=== PATIENT | female | born 2005 | race Two or more races ===

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

== ENCOUNTER 2025-01-29 10:51 | Emergency (ER) | payer MEDICAID, SELFPAY ==
[2025-01-29 10:52] VITALS: BMI 15.0
[2025-01-29 10:58] VITALS: BP 106/74; PULSE 98; RESP 18; TEMP 36.7; O2SAT 97
--- NOTE | 2025-01-29 11:17 | XR_ITS ---
Examination: Pelvic ultrasound, transabdominal, complete Technique: Transabdominal ultrasound of the pelvis performed using grayscale imaging Date and time of exam: January 29, 2025, 11:52 AM Indications: Pelvic pain beginning 2 hours ago Findings: Uterus 8.5 cm endometrial stripe 1.1 cm No uterine mass or intrauterine gestation Right ovary 3.9 cm arterial flow. Left ovary 3.6 cm arterial flow Impression: Negative study
--- NOTE | 2025-01-29 11:19 | PD.EDABDPN ---
ED Abdominal Pain RME/HPI General Chief Complaint: Abdominal Pain Stated complaint: SEVERE LOWER ABD PAIN, N/V, FAINTED, HEARING LOSS Time seen by provider: 01/29/25 10:59 Arrival date/time: 01/29/25 10:51 Source: patient Limitations: no limitations RME / HPI RME / HPI narrative: Patient is a healthy 19-year-old female with no past medical or surgical history. She states she developed diffuse pelvic pain this morning and had episodes of emesis. She denies any dysuria or flank pain. No fevers or chills. No vaginal discharge or itching. She states she is sexually active but does not use any for control. Last menstrual cycle was sometime 1 month ago. She has no other acute complaints or concerns. Related Data Allergies Allergy/AdvReac Type Severity Reaction Status Date / Time acetaminophen (From Allergy Severe Rash Verified 01/29/25 10:55 Tylenol-Codeine) codeine (From Allergy Severe Rash Verified 01/29/25 10:55 Tylenol-Codeine) Review of Systems Review of Systems Systems Reviewed: All systems reviewed, normal except as documented ED Exam General Limitations: Present no limitations General appearance: Present alert and in no apparent distress Head Head exam: Present atraumatic Eye Eye exam: Present normal appearance, PERRL and EOMI ENT ENT exam: Present normal exam, normal oropharynx and mucous membranes moist Neck Neck exam: Present normal inspection, full ROM and trachea midline Chest Chest inspection: Present normal inspection and symmetric chest wall rise Respiratory Respiratory exam: Present normal lung sounds bilaterally Cardiovascular Cardiovascular exam: Present regular rate, normal rhythm and normal heart sounds Abdominal Exam Abdominal exam: Present soft and tenderness; Absent distention, guarding or rebound Extremities Exam Extremities exam: Present normal inspection and full ROM Back Exam Back exam: Present normal inspection and full ROM Neurological Exam Neurological exam: Present alert and oriented X3 Psychiatric Psychiatric exam: Present normal affect and normal mood Skin Skin exam: Present warm, dry, intact and normal color Course Quality Measures none Orders Category Date Time Status Insert IV NOW Care 01/29/25 12:47 Active pelvic complete Stat Exams 01/29/25 11:17 Completed CBC Stat Lab 01/29/25 11:28 Completed CMP [Comprehensive Metabolic Panel] Stat Lab 01/29/25 11:28 Completed HCG,Qualitative Serum Stat Lab 01/29/25 11:28 Completed Lactic Acid [Lactate (Lactic Acid)] Stat Lab 01/29/25 11:28 Results Lipase Stat Lab 01/29/25 11:28 Completed UA, C/S IF [Urinalysis, C/S if Indicated] Stat Lab 01/29/25 11:42 Completed HYDROcodone*/APAP 5/325 [[place] 5/325] Med 01/29/25 11:16 Discontinued 1 tab PO X1 ONE Sodium Chloride 0.9% 1000 ml [Ns] 1,000 ml Med 01/29/25 12:12 Discontinued IV 999 mls/hr Vital Signs Vital signs: Vital Signs Temperature 98.0 F 01/29/25 10:58 Pulse Rate 98 01/29/25 10:58 Respiratory Rate 18 01/29/25 10:58 Blood Pressure 106/74 01/29/25 10:58 Pulse Oximetry (%) 97 01/29/25 10:58 Oxygen Delivery Method Room Air 01/29/25 10:58 Abdominal Pain MDM MDM Narrative MDM Narrative:: Patient is a healthy 19-year-old female with no past medical or surgical history. She states she developed diffuse pelvic pain this morning and had episodes of emesis. She denies any dysuria or flank pain. No fevers or chills. No vaginal discharge or itching. She states she is sexually active but does not use any for control. Last menstrual cycle was sometime 1 month ago. She has no other acute complaints or concerns. On exam, patient is nontoxic-appearing in no visible signs distress. Vital signs are stable. Abdominal exam is benign. Workup here is unremarkable with exception of a mildly elevated lactic acid level. Patient received a fluid bolus here and is feeling much better at this time. I do believe the patient be discharged in the ER. She is asked to follow-up with her primary doctor this week. Return precautions were discussed. She agrees to return here as needed for any worsening or emergent changes. Patient data External records reviewed:: None Clinical information provided by:: patient Social determinants that could affect healthcare access:: none Patient has the following chronic illnesses:: n/a How is presenting disease/condition affected by chronic disease/condition?: no chronic disease Evaluation data The following diagnostics were reviewed and interpreted by me:: lab results and radiology exam(s) Lab and/or radiology exams considered but not ordered:: n/a Interpretation Summary: Mildly elevated lactic acid, CBC, metabolic panel, urinalysis, and pelvic ultrasound are unremarkable. Medications / Prescriptions Medications or Prescriptions considered but not ordered:: n/a Medication administrations:: Medication Administration History Discontinued Medications Hydrocodone Bitart/Acetaminophen (Hydrocodone/[place] 5/325 Tablet) 1 tab PO X1 ONE Stop: 01/29/25 11:17 Last Admin: 01/29/25 12:17 Dose: Not Given Documented By: DB Non-Admin Reason: Contraindicated Sodium Chloride (Ns) 1,000 mls @ 999 mls/hr IV .Q1H1M ONE Stop: 01/29/25 13:12 Last Infusion: 01/29/25 13:48 Dose: Infused Documented By: Admin: 01/29/25 12:47 Dose: 999 mls/hr Documented By: DB See above Consultations Consultation(s) initiated? (list below): No Diagnosis Differential diagnosis abdominal pain: abdominal pain, endometriosis and other (Ovarian cyst) Most likely diagnosis given after review of the tests above:: Pelvic pain Admission Indicated Admission indicated?: not indicated Admission Request Was there a request for admission?: No Disposition Plan Disposition Plan: Discharge Discharge Attestation Discharge Attestation: The patient and all family members were given an opportunity to ask questions and understood the discharge instructions. Discharge instructions specifically effects, indications for sooner follow up or return to the emergency department, and the expected course of current diagnosis. Patient condition: Stable Discharge Plan Plan Patient Disposition: HOME (Self Care) Patient condition on transfer: Stable Prescriptions/Referrals Referrals: Satnam Garrido MD [Primary Care Provider] - In 1 week Problem List Clinical Impression: Pelvic pain Patient/Caregiver Discharge Instructions Education Materials: ED Pelvic Pain, Unknown Cause Additional Instructions: - Use Tylenol and ibuprofen for comfort. - Follow-up with your primary doctor this week. - Please return to the emergency room at anytime for any worsening changes including worsening pain or fevers. Print Language: [place] Stand Alone Forms: Caroline Award Info., Patient Portal Info Letter
[2025-01-29 11:52] LABS: Lactate (Lactic Acid) 2.5 mMol/L (0.4-2.0)
[2025-01-29 11:56] LABS: Collection Type, Urine Voided
[2025-01-29 12:08] LABS: Basophils # (Auto) 0.0 Thou/mm3 (0.0-0.2); Basophils % (Auto) 0 % (0-2.5); Eosinophils # (Auto) 0.0 Thou/mm3 (0.0-0.5); Eosinophils % (Auto) 0 % (0-10); Hematocrit 41.3 % (36.0-46.0); Hemoglobin 13.5 g/dL (12.0-16.0); Immature Granulocytes Auto 0.05 Thou/mm3 (0.00-0.00); Lymphocytes # (Auto) 1.4 Thou/mm3 (1.0-5.0); Lymphocytes % (Auto) 19 % (10-50); Mean Corpuscular HGB Conc 32.7 g/dl (31.0-37.0); Mean Corpuscular Hemoglobin 28.0 pg (25.0-35.0); Mean Corpuscular Volume 86 fL (80-100); Monocytes # (Auto) 0.5 Thou/mm3 (0.0-0.8); Monocytes % (Auto) 6 % (0-12); Neutrophils # (Auto) 5.6 Thou/mm3 (1.8-7.7); Neutrophils % (Auto) 74 % (37-80); Nucleated Red Blood Cell # 0.00 Thou/mm3 (0.00-0.00); Nucleated Red Blood Cell % 0 /100 WBC (0); Platelet Count 197 Thou/mm3 (140-440); RDW Standard Deviation 39.8 fL (36.4-46.3); Red Blood Count 4.83 Miln/mm3 (4.00-5.20); White Blood Count 7.6 Thou/mm3 (4.5-11.0)
[2025-01-29 12:31] LABS: Alanine Aminotransferase 10 U/L (10-49); Albumin, Serum 4.8 gm/dL (3.5-5.0); Albumin/Globulin Ratio 1.8 (1.2-2.2); Alkaline Phosphatase 63 U/L (46-116); Anion Gap 14 (7-16); Aspartate Amino Transferase 23 U/L (0-34); BUN/Creatinine Ratio 14 Ratio (12-20); Bilirubin,Total 0.6 mg/dL (0.3-1.2); Blood Urea Nitrogen 10 mg/dL (9-23); Calcium 10.2 mg/dL (8.3-10.6); Calcium (Corrected) 10.2 mg/dL (8.5-10.1); Carbon Dioxide 20.8 mMol/L (20.0-31.0); Chloride 106 mMol/L (98-107); Creatinine (Component) 0.7 mg/dL (0.6-1.3); Estimated Creatinine Clearance 75.9 mL/min (>60); Globulin 2.7 gm/dL (2.3-3.5); Glucose 93 mg/dL (74-106); Lipase 29 U/L (12-53); Osmolality,Calculated 280 (275-295); Potassium 4.2 mMol/L (3.4-5.1); Sodium 141 mMol/L (136-145); Total Protein 7.5 gm/dL (5.7-8.2); eGFR > 60 See Note
[2025-01-29 12:36] LABS: Bilirubin,Urine Negative (Negative); Blood,Urine Negative (Negative); Clarity,Urine Turbid (Clear/Hazy); Color,Urine Yellow (Lt Yel-Yel); Culture Indicated,Urine Not Indicated; Glucose, Urine Negative (Negative); Ketones,Urine 1+ (Negative); Leukocyte Esterase,Urine Negative (Negative); Nitrite,Urine Negative (Negative); PH,Urine 6.0 (5.0-7.0); Protein,Urine 1+ (Neg - Trace); RBC,Urine 4 /hpf (0-3); Specific Gravity,Urine 1.030 (1.001-1.035); Squamous Epithelial Cell,Urine 3 /hpf (0-5); Urobilinogen,Urine Negative mg/dL (0.0-1.0); WBC,Urine 4 /hpf (0-5)
[2025-01-29] MEDS: SODIUM CHLORIDE 0.9% 1000 ML 1,000 ML 999 ML IV (12:47)
[2025-01-29 12:49] LABS: HCG,Qualitative Serum Negative
[2025-01-29 14:44] LABS: Reflex Lactate? Y
[2025-01-29 14:56] VITALS: BP 101/63; PULSE 100; RESP 16; TEMP 36.9; O2SAT 99
== END 2025-01-29 14:56 | disposition home or self-care (01) ==
PROVIDERS: Physician Assistant Medical; Emergency Provider Emergency Medicine; PCP Family Medicine
DX: R10.2 Pelvic and perineal pain (principal)
CPT/HCPCS: 36415; 76856; 80053; 81001; 83605; 83690; 84703; 85025; 96360; 99283; J7030